=== PATIENT | male | born 1960 | race Caucasian/White ===

== ENCOUNTER → 2017-08-23 | Day surgery (SDC) | payer OTHER ==
[~2017-08-23] MED LIST: ACETAMINOPHEN 1000 MG/100 ML 100 ML IV ONE; BUPIVACAINE/EPINEPHRINE 0.25% PF 10 ML VIAL ONE; BUPIVACAINE/EPINEPHRINE 0.5% PF 30 ML VIAL ONE; KETOROLAC TROMETHAMINE 30 MG/ML (IVP) VIAL IV PUSH ONE; LACTATED RINGER'S 1000 ML INJ 1,000 ML ONE; MIDAZOLAM HCL 2 MG/2 ML VIAL ONE; ONDANSETRON HCL 4 MG/2 ML VIAL IV PUSH ONE; PROPOFOL 200 MG/20 ML AMP IV ONE; ceFAZolin 2 GM PREMIX 50 ML ONE
--- NOTE | 2017-08-23 13:13 | PD.OP ---
cc: Jose Akers MD Operative Report Date of Surgery: August 23, 2017 Preoperative Diagnosis: Symptomatic left inguinal hernia Postoperative Diagnosis: Same, indirect Procedure: Laparoscopic repair left inguinal hernia with mesh Anesthesia: General Surgeon: Jose Akers Edging Machine Setter(s): ACE Operation and Findings: Indications for procedure This is a pleasant 56-year-old gentleman with classic symptoms of left inguinal hernia. Physical exam demonstrated a reducible left inguinal hernia. He desired operative repair. Intraoperative findings Left indirect inguinal hernia, left spermatic cord lipoma. Estimated blood loss less than 10 mL. Description of procedure in detail Patient was identified as Darin Toledo, taken to the operating room placed in supine position. Sequential compression device were placed on bilateral lower extremities. Following induction of adequate general anesthesia patient's lower abdomen was prepped and draped in usual sterile fashion with Betadine. A timeout procedure was performed. Following completion timeout procedure everyone's satisfaction within the room local anesthetic was infiltrated in the infraumbilical position. A small vertical infraumbilical incision was carried out the scalpel dissection continued posterior level into rectus fascia in the left side. It was incised its medial border using a scalpel and a preperitoneal plane was developed the surgeon's finger directed towards the pubic symphysis. The preperitoneal dissecting balloon was placed in the preperitoneal space and with the patient in slight Trendelenburg position, under direct laparoscopic view, it was inflated to a total of 30 pumps. This allowed identification of the pubic symphysis left side Jacoby's ligament and inferior epigastric vessels. Balloon was desufflated removed and the structural balloon trocar was placed in the preperitoneal space its balloon inflated and CO2 insufflation to a level of 11 mmHg ensued. 2 infraumbilical midline 5 mm trochars were placed in preperitoneal space under direct laparoscopic view after infiltration of local anesthetic and incision of the skin with a scalpel. Attention was turned to the left side. Blunt graspers used to dissect lateral and posterior the spermatic cord. Adherent peritoneum was reduced from the inguinal canal to the base of the spermatic cord. Posterior laterally spermatic cord lipoma was withdrawn from the inguinal canal into the preperitoneal space. A 4 x 6" piece of atrium Prolite mesh was cut with an anterolateral slit placed around the spermatic cord intact position of the tacking device. Tack was used to approximate the anterolateral slit on the inferior lateral border of Jacoby's ligament. A 2 x 6 " piece of the mesh was then placed across the anterolateral slit and help position superior lateral inferior medial and superior medial. Broad coverage of the indirect hernia defect and the femoral and direct spaces was created. Photograph was taken of the completed repair. Care was taken to avoid tach placement inferolaterally to avoid cutaneous nerve injury. Remaining local anesthetic was placed in the preperitoneal space after cauterization of a tiny preperitoneal fatty tissue bleeder. All bloody drainage have been suctioned out prior to placement of the local anesthetic. Trochars were removed under direct visualization there was no evidence of bleeding from trocar sites. The preperitoneal space was desufflated while holding the inferior lateral mesh against the abdominal wall. Infraumbilical trocar was removed. The anterior rectus fascial incision was closed with running 2-0 Vicryl suture. Port site skin incisions were approximated for Monocryl subcuticular sutures. Dressings were applied with Mastisol and half-inch brown Steri-Strips. Patient tolerated procedure without apparent complication. Sponge needle and instrument counts were correct at the end of the case. The patient was transported to PACU in stable condition. Jose Akers MD August 23, 2017 13:13
== END | disposition home or self-care (01) ==
LOC: ESDC 07:11
PROVIDERS: ATTEND Surgery Trauma Surgery
DX: K40.90 Unilateral inguinal hernia, without obstruction or gangrene, not specified as recurrent (principal)
CPT/HCPCS: 00840; 49650; C1727; C1781; J0131; J0690; J1885; J2250; J2405; J3010; J7120